=== PATIENT | female | born 1930 | race Caucasian/White ===

== ENCOUNTER → 2017-04-14 | Day surgery (SDC) | payer MEDICARE, BC ==
[~2017-04-14] MED LIST: ACETAMINOPHEN; ACIPHEX20 MG; AMLODIPINE BESYL5 MG PO; ASPIRIN; ASPIRIN81 M2 PO; CALCIUM CITRATE + D PO; CALTRATE 600+D PO; CENTRUM A Z PO; DARVOCET-N 1001 TAB PO; FUROSEMIDE40 MG PO; GLUCOPHAGE500 MG PO; HCTZ; HUMALOG100 U/ML; HYDROCODON-ACE1 EAC7 PO; IMODIUM A-D2 M2; LANTUS SOL100 UNIT/1; LIPITOR PO; LISINOPRIL; LOPRESSOR; MAGNESIUM400 M1; NEURONTIN300 MG PO; NIFEDICAL; NOVOLIN N100 U/ML; PRILOSEC PO; PROTONIX PO; SIMVASTATIN40 MG PO
--- NOTE | ~2017-04-14 | OR ---
Unit #: [id number] #: [id number] Patient: ELIZABETH MCLEOD [id number] [facility]. [address] [address] [id number] MR#: [id number] NAME: ELIZABETH MCLEOD ROOM: Date of Procedure: 04/14/2017 Admission Date: 04/14/2017 Surgeon: Bienvenido Glover Jr., M.D. : 1930 Attending Physician: Bienvenido Glover Jr., M.D. Primary Care Physician: Bob Samuel M.D. OPERATIVE REPORT INDICATIONS FOR PROCEDURE The patient is an 86-year-old white female, who recently was checked by her family physician and noted to have some anemia with heme-positive stools. It was felt she needed upper and lower endoscopy. She is brought in this time after prep at home for this procedure. PREOPERATIVE DIAGNOSES Anemia with heme-positive stools, rule out gastrointestinal bleeding. POSTOPERATIVE DIAGNOSES On upper endoscopy, the patient was noted to have a small hiatal hernia, mild gastritis, multiple fundic polyps that appeared to be benign, and a small area in the prepyloric region possibly compatible with a healing ulcer. On colonoscopy to the distal ileum, the scope was normal. ANESTHESIA MAC anesthesia. PROCEDURE PERFORMED Flexible fiberoptic esophagogastroduodenoscopy with antral biopsy for Helicobacter pylori and biopsies of some small benign-appearing fundic polyps and colonoscopy to the distal ileum. DESCRIPTION OF PROCEDURE The patient was positioned in Lynch position with left side down. After being given MAC anesthesia, the Olympus XQ scope was passed in the proximal esophagus. The entire esophagus was examined. There was no evidence of any esophagitis, no evidence of any stenosis. There was a small hiatal hernia present. The scope was advanced through the GE junction and the cardia, on down to the fundic and antral region of the stomach and retroflexed back up to the area of the cardia. There was a small hiatal hernia as noted above and no evidence of any gastric ulcer disease. The stomach distended well without evidence of rigidity. There was some mild gastritis with multiple benign-appearing fundic polyps. Several of these polyps were biopsied without bleeding for pathology. The scope was advanced down the prepyloric region and a biopsy was taken from the antrum for Helicobacter pylori without significant bleeding. There was a small humped up area of mucosa in the prepyloric region that appeared to be possibly a healing gastric ulcer. There were no exudate and no ulceration of the mucosa in this area though. The scope was advanced through the pylorus and duodenal bulb and down to the second portion of the duodenum. The entire duodenal portion examination was Unit #: [id number] #: [id number] Patient: ELIZABETH MCLEOD within normal limits. The scope was then slowly removed. The patient was repositioned for colonoscopy. Digital rectal examination was performed, which revealed no palpable mass or tenderness. No blood or stool in the rectal ampulla. The Olympus colonoscope was advanced through the anal canal up the rectum and retroflexed down to the area of the anorectal region. There was no evidence of any fissures. No significant internal hemorrhoids. The scope was then straightened and advanced up in the rectosigmoid, in the sigmoid and descending colon areas, around splenic flexure and the transverse colon, around hepatic flexure and ascending colon, down in the area of the cecum. The light from the tip of the scope could be seen transilluminating through right lower quadrant abdominal wall area. The scope was advanced up the distal ileum approximately 10 to 12 inches. There was no evidence of any ileitis or inflammatory bowel disease. The scope was slowly removed. There were no tumors, polyps, cancer, or AVMs. No evidence of any colitis, diverticulosis, or diverticulitis. The caliber of the colon appeared normal throughout without evidence of narrowing or obstruction. The scope was removed. The patient tolerated the procedure well and discharged in satisfactory condition. Dictated by... Bienvenido Glover Jr., M.D. JMB/luiza TD: 04/14/2017 14:55 JOB #: [id number] CC: Bob Samuel M.D. OPERATIVE REPORT Page 1 of 1 X Bienvenido Glover MD X PROCEDURE OPERATIVE NOTE
== END | disposition home or self-care (01) ==
LOC: COPS 10:44
DX: K31.7 Polyp of stomach and duodenum (principal); K44.9 Diaphragmatic hernia without obstruction or gangrene; K29.70 Gastritis, unspecified, without bleeding; D63.1 Anemia in chronic kidney disease; I13.0 Hypertensive heart and chronic kidney disease with heart failure and stage 1 through stage 4 chronic kidney disease, or unspecified chronic kidney disease; E11.22 Type 2 diabetes mellitus with diabetic chronic kidney disease; I50.32 Chronic diastolic (congestive) heart failure; N18.9 Chronic kidney disease, unspecified; M19.90 Unspecified osteoarthritis, unspecified site; K21.9 Gastro-esophageal reflux disease without esophagitis; E78.5 Hyperlipidemia, unspecified; R63.4 Abnormal weight loss; Z68.24 Body mass index [BMI] 24.0-24.9, adult; Z87.19 Personal history of other diseases of the digestive system; Z87.442 Personal history of urinary calculi; Z88.7 Allergy status to serum and vaccine; Z79.82 Long term (current) use of aspirin; Z79.4 Long term (current) use of insulin; Z79.899 Other long term (current) drug therapy; Z98.890 Other specified postprocedural states; Z98.49 Cataract extraction status, unspecified eye
CPT/HCPCS: 82947; 87077; 88305; 88312